=== PATIENT | male | born 2005 | race Caucasian/White ===

== ENCOUNTER 2024-04-06 02:58 | Emergency (ER) | payer BC ==
[~2024-04-06] VITALS: Ht 188 cm; Wt 86.4 kg
[2024-04-06] MEDS ORDERED: Ondansetron 4 MG/2 ML VIAL IV ONE (04:15)
[2024-04-06 04:25] LABS: HEMATOCRIT 42.1 % (36.0-47.0); HEMOGLOBIN 15.2 g/dl (12.5-16.1); MEAN CELL VOLUME 84 fl (80.0-95.0); MEAN CORPUSCULAR HEMOGLOBIN 31 pg (26-32); MEAN CORPUSCULAR HGB CONC 36 g/dl (33.0-37.0); PLATELET COUNT 250 K/mm3 (130-400); RED BLOOD COUNT 4.99 M/mm3 (4.20-5.60); REDCELL DISTRIBUTION WIDTH-CV 12.2 % (11.5-14.5)
[2024-04-06 04:26] LABS: ALBUMIN 4.6 g/dL (3.5-5.0); BILIRUBIN,TOTAL 0.8 mg/dL (0.2-1.2); CALCIUM 9.8 mg/dL (8.4-10.2); CREATININE, serum 1.06 mg/dL (0.72-1.25); POTASSIUM 3.9 mEq/L (3.5-4.5); TOTAL PROTEIN 7.6 g/dl (6.2-8.1)
[2024-04-06] MEDS ORDERED: NS 1,000 ML IV ONE (04:45)
[2024-04-06] MEDS ORDERED: LORazepam 2 MG/ML 1 ML VIAL IV ONE (05:15)
[2024-04-06 05:31] LABS: BAND 2 % (0-10); EOSINOPHIL 1 % (0-4); LYMPHOCYTE 20 % (20.0-51.0); NEUTROPHILS 72 % (42.0-75.2); PLATELET ESTIMATE NORMAL (NORMAL)
[2024-04-06 07:19] VITALS: BP 122/64; PULSE 87; TEMP 97.7
[2024-04-08] MEDS ORDERED: ZOFRAN ODT4 MG PO (09:27)
== END 2024-04-06 07:19 | disposition home or self-care (01) ==
LOC: COL.ER 02:58
PROVIDERS: Emergency Medicine
DX: F10.129 Alcohol abuse with intoxication, unspecified (principal); Y90.6 Blood alcohol level of 120-199 mg/100 ml
CPT/HCPCS: J0780; J2060; J2405; J7030